=== PATIENT | female | born 1985 ===

== ENCOUNTER 2017-07-02 08:56 | Emergency (ER) | payer OTHER ==
[2017-07-02 08:57] VITALS: BMI 29.3
--- NOTE | 2017-07-02 10:16 | C.PDOC ---
History Of Present Illness 32 y/o female with PMHx of Gastritis presents to ED with complaints of diarrhea for 3 days with occasional abdominal pain. Patient denies fever, nausea, vomiting, blood in stool or any other complaints at this time. Has not tried any medication for the symptoms. Time Seen by Provider: 07/02/17 09:47 Chief Complaint (Nursing): GI Problem History Per: Patient History/Exam Limitations: no limitations Onset/Duration Of Symptoms: Days Location Of Pain/Discomfort: Diffuse Past Medical History Reviewed: Historical Data, Nursing Documentation, Vital Signs Vital Signs: Last Vital Signs Temp 98.9 F 07/02/17 11:55 Pulse 72 07/02/17 11:55 Resp 17 07/02/17 11:55 BP 129/87 07/02/17 11:55 Pulse Ox 99 07/02/17 11:55 - Medical History PMH: Anemia, Asthma, Gastritis - [facility] Procedures LINEAR REP LID LACER (02/03/15) TETANUS TOXOID ADMINIST (02/03/15) Family History: States: No Known Family Hx - Social History Hx Tobacco Use: Yes Hx Alcohol Use: Yes Hx Substance Use: No - Immunization History Hx Tetanus Toxoid Vaccination: No Hx Influenza Vaccination: No Hx Pneumococcal Vaccination: No Review Of Systems Constitutional: Negative for: Fever, Chills Gastrointestinal: Positive for: Abdominal Pain, Diarrhea. Negative for: Nausea , Vomiting, Hematochezia Skin: Negative for: Rash Physical Exam - Physical Exam Appears: Non-toxic, No Acute Distress Skin: Warm, Dry, No Rash Head: Atraumatic, Normacephalic Eye(s): bilateral: Normal Inspection, EOMI Nose: Normal Oral Mucosa: Moist Neck: Normal ROM, Supple Chest: Symmetrical Cardiovascular: Rhythm Regular Respiratory: Normal Breath Sounds, No Accessory Muscle Use, No Rales, No Rhonchi , No Wheezing Gastrointestinal/Abdominal: Soft, Tenderness (Diffuse), No Guarding, No Rebound Back: No CVA Tenderness, No Vertebral Tenderness Neurological/Psych: Oriented x3 ED Course And Treatment - Laboratory Results Result Diagrams: 07/02/17 10:27 07/02/17 10:27 O2 Sat by Pulse Oximetry: 100 (RA) Pulse Ox Interpretation: Normal Progress Note: Blood work, UA ordered, Pepcid and Toradol administered. On re- evalaution, patient is resting comfortably, in no distress, abdomen is soft, no rebound or guarding, and is tolerating PO. Patient has no signs or symptoms to suggest surgical pathology. Patient was advised to follow up without fail with physician/clinic or to return to the ER for reevaluation in 1-2 days. Disposition - Disposition Disposition: HOME/ ROUTINE Disposition Time: 11:43 Condition: STABLE Additional Instructions: Follow up with primary medical doctor in 1-3 days without fail for further evaluation. Take medications as prescribed. Return to the emergency department at any time if symptoms persist or worsen. 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 - Scribe Statement The provider has reviewed the documentation as recorded by the Jiaibaaliyah Smalls All medical record entries made by the Jiaibaaliyah were at my direction and personally dictated by me. I have reviewed the chart and agree that the record accurately reflects my personal performance of the history, physical exam, medical decision making, and the department course for this patient. I have also personally directed, reviewed, and agree with the discharge instructions and disposition.
[2017-07-02 10:42] LABS: HCG,QUALITATIVE URINE NEGATIVE (NEGATIVE)
[2017-07-02 10:44] LABS: SQUAMOUS EPITHIAL 8 /hpf (0-5); URINE BACTERIA RARE (<OCC); URINE BILIRUBIN NEGATIVE (NEGATIVE); URINE BLOOD NEGATIVE (NEGATIVE); URINE CLARITY Hazy (Clear); URINE COLOR Yellow (YELLOW); URINE GLUCOSE (UA) NORMAL (Normal); URINE LEUKOCYTE ESTERASE NEG Leu/uL (Negative); URINE NITRATE NEGATIVE (NEGATIVE); URINE PROTEIN 1+ mg/dL (NEGATIVE)
[2017-07-02 10:47] LABS: BASO % 0.5 % (0.0-2.0); EOS # 0.1 K/uL (0.0-0.7); EOS % 0.8 % (0.0-4.0); HEMOGLOBIN 13.4 g/dL (11.0-16.0); LYMPH # 1.9 K/uL (1.0-4.3); LYMPH % 20.7 % (20.0-40.0); MEAN CELL VOLUME 84.3 fL (81.0-99.0); MEAN CORPUSCULAR HEMOGLOBIN 27.9 pg (27.0-31.0); MEAN CORPUSCULAR HGB CONC 33.1 g/dL (33.0-37.0); MEAN PLATELET VOLUME 9.3 fL (7.2-11.7); MONO # 0.3 K/uL (0.0-0.8); MONO % 3.8 % (0.0-10.0); NEUT # 6.7 K/uL (1.8-7.0); NEUT % 74.2 % (50.0-75.0); RBC 4.81 Mil/uL (3.80-5.20); RED CELL DISTRIBUTION WIDTH 12.9 % (11.5-14.5)
[2017-07-02 10:55] LABS: ALB/GLOB RATIO 1.3 (1.0-2.1); ALBUMIN 4.1 g/dL (3.5-5.0); CALCIUM 8.9 mg/dl (8.6-10.4); GFR AFRICAN-AMERICAN > 60; GFR NON-AFRICAN AMERICAN > 60; LIPASE 60 U/L (23-300)
[2017-07-02 10:58] LABS: ALT/SGPT 18 U/L (9-52); AST/SGOT 28 U/L (14-36); BLOOD UREA NITROGEN 10 mg/dL (7-17)
[2017-07-02 11:57] VITALS: BP 129/87; PULSE 72; RESP 17; TEMP 98.9
[2017-07-02 14:02] VITALS: O2SAT 100
== END 2017-07-02 11:56 | disposition home or self-care (01) ==
LOC: C.ER 08:56
DX: R10.9 Unspecified abdominal pain (principal); D64.9 Anemia, unspecified
CPT/HCPCS: 80053; 81001; 83690; 84703; 85025; 96374; 96375; 99284; J1885

== ENCOUNTER 2017-07-10 09:09 | Emergency (ER) | payer OTHER ==
[2017-07-10 09:09] VITALS: BMI 29.3
[2017-07-10 09:20] VITALS: BP 118/83; PULSE 78; RESP 20; TEMP 98.5; O2SAT 98
[2017-07-10] MEDS ORDERED: Iohexol 240 (50 ml) PO STA (10:05)
[2017-07-10] MEDS ORDERED: Sodium Chloride 0.9% 1,000 ML IV STA (10:05)
--- NOTE | 2017-07-10 10:17 | C.PDOC ---
History Of Present Illness 32 y/o female c/o upper and periumbilical abdominal pain x 2 days, associated with nausea and diarrhea. Patient states she has h/o gastritis, but was never seen by a GI and never had Upper endoscopy. Patient reports she was seen here 1 week ago and was d/c on antidiarrheal medicine with mild improvement. However symptoms came back even worse 2 days ago. Patient denies fever/sick contacts/ recent traveling. Time Seen by Provider: 07/10/17 09:40 Chief Complaint (Nursing): Abdominal Pain History Per: Patient History/Exam Limitations: no limitations Onset/Duration Of Symptoms: Days Current Symptoms Are (Timing): Still Present Severity: Moderate Past Medical History Reviewed: Historical Data, Nursing Documentation, Vital Signs Vital Signs: Last Vital Signs Temp 98.5 F 07/10/17 09:19 Pulse 78 07/10/17 09:19 Resp 20 07/10/17 15:10 BP 118/83 07/10/17 09:19 Pulse Ox 98 07/10/17 14:34 - Medical History PMH: Anemia, Asthma, Gastritis Denies: Diabetes, Hepatitis, HIV, HTN, Seizures, Sexually Transmitted Disease Surgical History: No Surg Hx - [facility] Procedures LINEAR REP LID LACER (02/03/15) TETANUS TOXOID ADMINIST (02/03/15) Family History: States: No Known Family Hx - Social History Hx Tobacco Use: Yes Hx Alcohol Use: Yes Hx Substance Use: No - Immunization History Hx Tetanus Toxoid Vaccination: No Hx Influenza Vaccination: No Hx Pneumococcal Vaccination: No Review Of Systems Except As Marked, All Systems Reviewed And Found Negative. Constitutional: Negative for: Fever, Chills Gastrointestinal: Positive for: Nausea, Abdominal Pain, Diarrhea Physical Exam - Physical Exam Appears: Non-toxic, No Acute Distress Skin: Normal Color, Warm Head: Atraumatic, Normacephalic Eye(s): bilateral: Normal Inspection Nose: Normal Oral Mucosa: Moist Neck: Supple Chest: Symmetrical Cardiovascular: Rhythm Regular Respiratory: Normal Breath Sounds, No Accessory Muscle Use, No Rales, No Rhonchi , No Wheezing Gastrointestinal/Abdominal: Normal Exam, Soft, Tenderness (epigastric and periumbilical tenderness), Guarding, No Rebound Extremity: Normal ROM Neurological/Psych: Oriented x3, Normal Speech, Normal Motor, Normal Sensation ED Course And Treatment - Laboratory Results Result Diagrams: 07/10/17 10:46 02/15/18 10:46 O2 Sat by Pulse Oximetry: 98 (RA) Pulse Ox Interpretation: Normal - CT Scan/US CT of Abdomen/Pelvis Other Rad Studies (CT/US): Read By Radiologist, Radiology Report Reviewed CT/US Interpretation: Accession No. : [id number]. Patient Name / ID : LEXUS ROSE / [id number]. Exam Date : 07/10/2017 13:35:40 ( Approved ). Study Comment : Sex / Age : F / 32Y. Creator : Portia Hickey MD. Dictator : Portia Hickey MD. Associate Manager : Thread Tool Grinder Set Up Operator : Portia Hickey MD. Approver2 : Report Date : 07/10/2017 14:14:02. My Comment : . PROCEDURE: CT Abdomen and Pelvis with oral and IV contrast. HISTORY: upper and periumbilical abd pain. COMPARISON: CT abdomen and pelvis with IV contrast performed 01/01/15. TECHNIQUE: Contiguous axial images of the abdomen and pelvis. Oral and IV contrast was administered. Coronal and Sagittal reformats generated and reviewed. Contrast dose: 100 cc visi opaque 320. Radiation dose: Total exam DLP = 314.61 mGy-cm. This CT exam was performed using one or more of the following dose reduction techniques: Automated exposure control, adjustment of the mA and/or kV according to patient size, and/ or use of iterative reconstruction technique. FINDINGS: LOWER THORAX: No visible consolidation, pleural effusion, or pneumothorax. LIVER: 6 mm right hepatic lobe calcification, likely granuloma. GALLBLADDER AND BILE DUCTS: Unremarkable. PANCREAS: Unremarkable. SPLEEN: Unremarkable. ADRENALS: Unremarkable. KIDNEYS AND URETERS: The kidneys enhance symmetrically. No hydronephrosis or obstructing renal calculus. BLADDER: The urinary bladder appears unremarkable. REPRODUCTIVE: Uterus is present. Nonspecific prominence of the cervix; correlate with pelvic exam and or ultrasound if indicated. IUD. APPENDIX: The appendix appears within normal limits of caliber. No secondary signs of acute appendicitis. BOWEL: The stomach is nondistended. The bowel loops appear within normal limits of caliber without evidence of intestinal obstruction. PERITONEUM: No significant free fluid. No definite free air. LYMPH NODES: No bulky lymphadenopathy identified. VASCULATURE: No aortic aneurysm. BONES: No acute osseous abnormality is detected. OTHER FINDINGS: Tiny fat containing umbilical hernia. IMPRESSION: No acute findings identified. Nonspecific prominence of the cervix; correlate with pelvic exam and or ultrasound if indicated. IUD. Progress Note: Labs and CT -Abd/Pelv. ordered. Patient given IVF, Protonix IVP, and Zofran IVP. On re-evaluation patient feels better, tolerates poa nd is stable to be d/c home with PMD and GI follow up. Disposition - Disposition Referrals: Vivek Mckenna MD [Staff Provider] - Disposition: HOME/ ROUTINE Disposition Time: 14:30 Condition: STABLE Additional Instructions: Follow up with PMD and Artificial Breeding Ranch Supervisor within 1-2 days. Return to ED if feel worse. Prescriptions: Dicyclomine [Bentyl] 20 mg PO TID #30 tab Famotidine [Pepcid] 20 mg PO BID #20 tab Instructions: Acute Abdomen (Belly Pain) Forms: [employer] Connect (Mongolian) - Clinical Impression Clinical Impression: Abdominal pain - PA / CONFLICTS ANALYST / Resident Statement MD/DO has reviewed & agrees with the documentation as recorded. - Scribe Statement The provider has reviewed the documentation as recorded by the Ana Cavazos Provider Attestation All medical record entries made by the Ana were at my direction and personally dictated by me. I have reviewed the chart and agree that the record accurately reflects my personal performance of the history, physical exam, medical decision making, and the department course for this patient. I have also personally directed, reviewed, and agree with the discharge instructions and disposition.
[2017-07-10] MEDS ORDERED: Iohexol 240 (50 ml) ONE (10:44)
[2017-07-10] MEDS ORDERED: Sodium Chloride 0.9% 1,000 ML ONE (10:45)
[2017-07-10 11:00] LABS: BASO % 0.5 % (0.0-2.0); EOS # 0.2 K/uL (0.0-0.7); EOS % 1.8 % (0.0-4.0); HEMOGLOBIN 13.2 g/dL (11.0-16.0); LYMPH # 1.7 K/uL (1.0-4.3); LYMPH % 20.1 % (20.0-40.0); MEAN CELL VOLUME 84.2 fL (81.0-99.0); MEAN CORPUSCULAR HEMOGLOBIN 27.6 pg (27.0-31.0); MEAN CORPUSCULAR HGB CONC 32.8 g/dL (33.0-37.0); MEAN PLATELET VOLUME 9.3 fL (7.2-11.7); MONO # 0.4 K/uL (0.0-0.8); MONO % 4.4 % (0.0-10.0); NEUT # 6.3 K/uL (1.8-7.0); NEUT % 73.2 % (50.0-75.0); NRBC % 0.1 % (0.0-2.0); RBC 4.8 Mil/uL (3.80-5.20); RED CELL DISTRIBUTION WIDTH 12.8 % (11.5-14.5); WHITE BLOOD COUNT 8.6 K/uL (4.8-10.8)
[2017-07-10 11:04] LABS: HCG,QUALITATIVE URINE NEGATIVE (NEGATIVE)
[2017-07-10 11:14] LABS: ALB/GLOB RATIO 1.3 (1.0-2.1); ALBUMIN 3.8 g/dL (3.5-5.0); ALT/SGPT 18 U/L (9-52); AST/SGOT 19 U/L (14-36); BLOOD UREA NITROGEN 12 mg/dL (7-17); CALCIUM 8.7 mg/dl (8.6-10.4); GFR AFRICAN-AMERICAN > 60; GFR NON-AFRICAN AMERICAN > 60; LIPASE 104 U/L (23-300)
[2017-07-10 11:18] LABS: SQUAMOUS EPITHIAL 3 /hpf (0-5); URINE BILIRUBIN NEGATIVE (NEGATIVE); URINE BLOOD 2+ (NEGATIVE); URINE CALCIUM OXALATE CRYSTALS FEW /hpf (<OCC); URINE CLARITY Hazy (Clear); URINE COLOR Yellow (YELLOW); URINE GLUCOSE (UA) NORMAL (Normal); URINE LEUKOCYTE ESTERASE NEG Leu/uL (Negative); URINE NITRATE NEGATIVE (NEGATIVE); URINE PROTEIN NEGATIVE (NEGATIVE)
[2017-07-10] MEDS ORDERED: Iodixanol 320 MG/ML 100 ML BOTTLE IV ONE (12:45)
--- NOTE | 2017-07-10 14:15 | CT ---
PROCEDURE: CT Abdomen and Pelvis with oral and IV contrast. HISTORY: upper and periumbilical abd pain COMPARISON: CT abdomen and pelvis with IV contrast performed 01/01/15 TECHNIQUE: Contiguous axial images of the abdomen and pelvis. Oral and IV contrast was administered. Coronal and Sagittal reformats generated and reviewed. Contrast dose: 100 cc visi opaque 320 Radiation dose: Total exam DLP = 314.61 mGy-cm. This CT exam was performed using one or more of the following dose reduction techniques: Automated exposure control, adjustment of the mA and/or kV according to patient size, and/or use of iterative reconstruction technique. FINDINGS: LOWER THORAX: No visible consolidation, pleural effusion, or pneumothorax. LIVER: 6 mm right hepatic lobe calcification, likely granuloma. GALLBLADDER AND BILE DUCTS: Unremarkable. PANCREAS: Unremarkable. SPLEEN: Unremarkable. ADRENALS: Unremarkable. KIDNEYS AND URETERS: The kidneys enhance symmetrically. No hydronephrosis or obstructing renal calculus. BLADDER: The urinary bladder appears unremarkable. REPRODUCTIVE: Uterus is present. Nonspecific prominence of the cervix; correlate with pelvic exam and or ultrasound if indicated. IUD. APPENDIX: The appendix appears within normal limits of caliber. No secondary signs of acute appendicitis. BOWEL: The stomach is nondistended. The bowel loops appear within normal limits of caliber without evidence of intestinal obstruction. PERITONEUM: No significant free fluid. No definite free air. LYMPH NODES: No bulky lymphadenopathy identified. VASCULATURE: No aortic aneurysm. BONES: No acute osseous abnormality is detected. OTHER FINDINGS: Tiny fat containing umbilical hernia. IMPRESSION: No acute findings identified. Nonspecific prominence of the cervix; correlate with pelvic exam and or ultrasound if indicated. IUD.
== END 2017-07-10 15:10 | disposition home or self-care (01) ==
LOC: C.ER 09:09
DX: R10.13 Epigastric pain (principal); R10.33 Periumbilical pain
CPT/HCPCS: 74177; 80053; 81001; 83690; 84703; 85025; 96361; 96374; 96375; 99284; C9113; J2405; J7040; Q9966; Q9967

== ENCOUNTER 2017-09-29 08:51 | Emergency (ER) | payer OTHER ==
[2017-09-29 08:51] VITALS: BMI 29.3
[2017-09-29 09:09] VITALS: BP 94/64; PULSE 79; RESP 18; TEMP 98.5; O2SAT 98
--- NOTE | 2017-09-29 10:20 | C.PDOC ---
History Of Present Illness 32 y/o female presents to the ER complaining of loose stools in the morning today. Patient is also complaining of mild nasal congestion due to seasonal allergies.Patient reports that she would like to refill her Albuterol inhaler. Time Seen by Provider: 09/29/17 10:13 Chief Complaint (Nursing): Shortness Of Breath History Per: Patient History/Exam Limitations: no limitations Onset/Duration Of Symptoms: Days Current Symptoms Are (Timing): Still Present Severity: Moderate Past Medical History Reviewed: Historical Data, Nursing Documentation, Vital Signs Vital Signs: Last Vital Signs Temp 98.5 F 09/29/17 09:06 Pulse 79 09/29/17 09:06 Resp 18 09/29/17 10:34 BP 94/64 L 09/29/17 09:06 Pulse Ox 98 09/29/17 12:52 - Medical History PMH: Anemia, Asthma (NO MEDS), Gastritis Denies: Diabetes, Hepatitis, HIV, HTN, Seizures, Sexually Transmitted Disease Surgical History: No Surg Hx - [facility] Procedures LINEAR REP LID LACER (02/03/15) TETANUS TOXOID ADMINIST (02/03/15) Family History: States: No Known Family Hx - Social History Hx Tobacco Use: Yes Hx Alcohol Use: Yes Hx Substance Use: No - Immunization History Hx Tetanus Toxoid Vaccination: No Hx Influenza Vaccination: No Hx Pneumococcal Vaccination: No Review Of Systems Except As Marked, All Systems Reviewed And Found Negative. Constitutional: Negative for: Fever, Chills ENT: Positive for: Nose Congestion Gastrointestinal: Positive for: Diarrhea. Negative for: Nausea, Vomiting, Abdominal Pain Physical Exam - Physical Exam Appears: Non-toxic, No Acute Distress Skin: Normal Color, Warm, Dry Head: Atraumatic, Normacephalic Eye(s): bilateral: Normal Inspection Nose: Normal Oral Mucosa: Moist Neck: Supple Chest: Symmetrical Cardiovascular: Rhythm Regular Respiratory: No Rales, No Rhonchi, Wheezing (occasional scant wheezing) Neurological/Psych: Oriented x3, Normal Speech ED Course And Treatment O2 Sat by Pulse Oximetry: 98 (RA) Pulse Ox Interpretation: Normal Progress Note: Patient given Motrin PO. Medical Decision Making Medical Decision Making: mild R elbow discomfort, normal exam seasonal allergies ? mild asthma, wants MDI refilled. Disposition Doctor Will See Patient In The: Office Counseled Patient/Family Regarding: Studies Performed, Diagnosis - Disposition Referrals: [facility] [Outside] [facility] [Outside] Disposition: HOME/ ROUTINE Disposition Time: 10:20 Condition: GOOD Additional Instructions: diarrhea: bland diet Drink plenty of fluids asthma: Albuterol puffer refilled. always use with Aerochamber Spacer Season allergies: take OTC allergy meds as needed Prescriptions: Albuterol Sulfate [Proair Hfa] 0.09 mg IH 5XD #1 inh Spacer, Inhalation [Aerochamber] 1 dev IH DAILY #1 dev Instructions: Asthma in Adults, Seasonal Allergies in Adults Forms: [employer] (Tuvaluan) - Clinical Impression Clinical Impression: Seasonal allergies, Medication refill - Scribe Statement The provider has reviewed the documentation as recorded by the Jiaibe Tylor Cavazos Provider Attestation: All medical record entries made by the Scribe were at my direction and personally dictated by me. I have reviewed the chart and agree that the record accurately reflects my personal performance of the history, physical exam, medical decision making, and the department course for this patient. I have also personally directed, reviewed, and agree with the discharge instructions and disposition.
== END 2017-09-29 10:36 | disposition home or self-care (01) ==
LOC: C.ER 08:51
DX: Z76.0 Encounter for issue of repeat prescription (principal); J45.909 Unspecified asthma, uncomplicated; Z72.0 Tobacco use

== ENCOUNTER 2018-06-02 10:37 | Emergency (ER) | payer MEDICAID, OTHER ==
[2018-06-02 10:37] VITALS: BMI 29.3
[2018-06-02] MEDS ORDERED: Lidocaine 1% Inj (20ml) INFIL ONE (12:06)
[2018-06-02] MEDS ORDERED: Lidocaine Hydrochloride 10 ML INJ ONE (12:09)
[2018-06-02] MEDS ORDERED: Tmp-Smz 800 mg-160 mg DS Tab PO STA (12:22)
[2018-06-02] MEDS ORDERED: Tdap Vaccine 0.5 ml Vial (10-64 yrs) IM ONE ×2 (12:31→12:39)
[2018-06-02] MEDS ORDERED: Tmp-Smz 800 mg-160 mg DS Tab ONE (12:33)
--- NOTE | 2018-06-02 12:33 | C.PDOC ---
History Of Present Illness 33 y/o female presents to the ED with a 2 day history of redness and swelling to the left anterior thigh region. States she applied hot compresses and noticed some white pus oozing from the area. Tetanus is not UTD. Patient denies prior hx of abscesses. No associated fever or chills. Time Seen by Provider: 06/02/18 11:52 Chief Complaint (Nursing): Lower Extremity Problem/Injury History Per: Patient History/Exam Limitations: no limitations Onset/Duration Of Symptoms: Days Current Symptoms Are (Timing): Still Present Past Medical History Reviewed: Historical Data, Nursing Documentation, Vital Signs Vital Signs: Last Vital Signs Temp 99.1 F 06/02/18 11:02 Pulse 86 06/02/18 11:02 Resp 20 06/02/18 11:02 BP 109/74 06/02/18 11:02 Pulse Ox 100 06/02/18 11:02 - Medical History PMH: Anemia, Asthma (NO MEDS), Gastritis Denies: Diabetes, Hepatitis, HIV, HTN, Seizures, Sexually Transmitted Disease - [facility] Procedures LINEAR REP LID LACER (02/03/15) TETANUS TOXOID ADMINIST (02/03/15) Family History: States: Unknown Family Hx - Social History Hx Tobacco Use: Yes Hx Alcohol Use: Yes Hx Substance Use: No - Immunization History Hx Tetanus Toxoid Vaccination: No Hx Influenza Vaccination: No Hx Pneumococcal Vaccination: No Review Of Systems Except As Marked, All Systems Reviewed And Found Negative. Constitutional: Negative for: Fever, Chills Skin: Positive for: Other (Leg wound). Negative for: Rash Neurological: Negative for: Weakness, Numbness Physical Exam - Physical Exam Appears: Non-toxic, No Acute Distress Skin: Normal Color, Warm, Dry Head: Atraumatic, Normacephalic Eye(s): bilateral: Normal Inspection Neck: Normal ROM Chest: Symmetrical Respiratory: No Accessory Muscle Use, Other (No respiratory distress) Extremity: Normal ROM, No Calf Tenderness, Capillary Refill (< 2 sec), Swelling (8x8 cm erythematous, indurated abscess to left anterior thigh) Pulses: Left Dorsalis Pedis: Normal, Right Dorsalis Pedis: Normal Neurological/Psych: Oriented x3 ED Course And Treatment O2 Sat by Pulse Oximetry: 100 (RA) Pulse Ox Interpretation: Normal - Incision & Drainage Of Abscess Anesthesia: Lidocaine 1% (10cc) Prep Used: Sterile Water, Betadine Procedure: Incised W/Scalpel Blade#: (11), Drained Pus, Irrigated Cavity W/Salin e, Probed To Break Up Loculations, Packed W/Gauze Medical Decision Making Medical Decision Making: Impression: Abscess Plan: - Tetanus booster - 600 mg PO motrin - 10cc lido 1% ordered for procedure Patient is requesting I&D for abscess. Wound incised, and a very small amount of purulent drainage was expressed. First doses of Keflex and Bactrim given in the ED. Patient advised to return for wound check in 2 days. Disposition Counseled Patient/Family Regarding: Diagnosis, Need For Followup, Rx Given - Disposition Referrals: [facility] [Outside] Disposition: HOME/ ROUTINE Disposition Time: 12:34 Condition: STABLE Additional Instructions: follow up with your doctor within 2 days call to make an appointment take medications as prescribed return to ER if symptoms worsens or progress wound check within 2 days Prescriptions: Cephalexin [Keflex] 500 mg PO QID #40 capsule Naproxen [Naprosyn] 500 mg PO BID PRN #16 tab PRN Reason: Pain, Moderate (4-7) Sulfamethoxazole/Trimethoprim [Bactrim DS 800 mg-160 mg] 1 tab PO BID #20 tab Instructions: Skin Abscess Forms: General Discharge Instructions, [facility] (Georgian), Work Excuse - Clinical Impression Clinical Impression: Abscess - Scribe Statement The provider has reviewed the documentation as recorded by the Ana Brooke Provider Attestation: All medical record entries made by the Ana were at my direction and personally dictated by me. I have reviewed the chart and agree that the record accurately reflects my personal performance of the history, physical exam, medical decision making, and the department course for this patient. I have also personally directed, reviewed, and agree with the discharge instructions and disposition.
[2018-06-02 12:44] VITALS: BP 129/83; PULSE 66; RESP 18; TEMP 99.5
[2018-06-03 14:04] VITALS: O2SAT 100
== END 2018-06-02 12:47 | disposition home or self-care (01) ==
LOC: C.ER 10:37
DX: L02.416 Cutaneous abscess of left lower limb (principal); Z23 Encounter for immunization; Z72.0 Tobacco use

== ENCOUNTER 2018-06-04 15:00 | Emergency (ER) | payer MEDICAID ==
[2018-06-04 15:06] VITALS: BMI 26.8
[2018-06-04 15:09] VITALS: BP 135/89; PULSE 87; RESP 18; TEMP 98.4; O2SAT 99
--- NOTE | 2018-06-04 15:20 | C.PDOC ---
History Of Present Illness 33 y/o female presents to the ED for wound check of the left thigh. Patient underwent I&D to the leg 2 days ago. States she is on antibiotics at home, taking them as instructed. Patient notes the packing fell out. She reports the erythema is improving, although the area remains moderately erythematous and indurated on exam. . Denies any fevers or chills. Time Seen by Provider: 06/04/18 15:13 Chief Complaint (Nursing): Wound Check History Per: Patient History/Exam Limitations: no limitations Onset/Duration Of Symptoms: Days Ago (2) Current Symptoms Are (Timing): Still Present Quality Of Symptoms: Swollen, Draining Past Medical History Reviewed: Historical Data, Nursing Documentation, Vital Signs Vital Signs: Last Vital Signs Temp 98.4 F 06/04/18 15:06 Pulse 87 06/04/18 15:06 Resp 18 06/04/18 15:06 BP 135/89 06/04/18 15:06 Pulse Ox 99 06/04/18 15:06 - Medical History PMH: Anemia, Asthma (NO MEDS), Gastritis Denies: Diabetes, Hepatitis, HIV, HTN, Seizures, Sexually Transmitted Disease - [facility] Procedures LINEAR REP LID LACER (02/03/15) TETANUS TOXOID ADMINIST (02/03/15) Family History: States: Unknown Family Hx - Social History Hx Tobacco Use: Yes Hx Alcohol Use: Yes Hx Substance Use: No - Immunization History Hx Tetanus Toxoid Vaccination: No Hx Influenza Vaccination: No Hx Pneumococcal Vaccination: No Review Of Systems Except As Marked, All Systems Reviewed And Found Negative. Constitutional: Negative for: Fever, Chills Skin: Positive for: Lesions (incised wound, + redness) Neurological: Negative for: Weakness, Numbness Physical Exam - Physical Exam Appears: Non-toxic, No Acute Distress Skin: Warm, Dry, Other (2x3 cm erythematous induration to the left upper thigh) Head: Atraumatic, Normacephalic Eye(s): bilateral: Normal Inspection, PERRL, EOMI Neck: Normal ROM Chest: Symmetrical Respiratory: No Accessory Muscle Use, Other (No respiratory distress) Extremity: Bilateral: Normal ROM Pulses: Left Dorsalis Pedis: Normal, Right Dorsalis Pedis: Normal Neurological/Psych: Oriented x3 Gait: Steady ED Course And Treatment O2 Sat by Pulse Oximetry: 99 (RA) Pulse Ox Interpretation: Normal Medical Decision Making Medical Decision Making: Impression: Visit for wound check Wound examined with bedside US, and does not show any collection to be drained. Wound was cleaned with bacitracin, new dressing applied. I suggested to patient 2 options. as pt states, erythema is improving, states she prefers to go home with continued outpatient management., as opposed to iv antibiotics. I advised her to return immediately with any worsening symptoms, or return in 2 days for routine wound check. Disposition Counseled Patient/Family Regarding: Diagnosis, Need For Followup, Rx Given - Disposition Referrals: [facility] [Outside] [facility] [Outside] Disposition: HOME/ ROUTINE Disposition Time: 15:35 Condition: STABLE Additional Instructions: return to your doctor or pmd or er in 2 days for reassessment. Prescriptions: RX: Naproxen [Naprosyn] 500 mg PO BID PRN #14 tablet PRN Reason: Pain, Mild (1-3) Instructions: Cellulitis (Skin Infection), Adult (DC) Forms: [employer] (Cuban) - Clinical Impression Clinical Impression: Wound check, abscess, Cellulitis - Scribe Statement The provider has reviewed the documentation as recorded by the Ana Brooke Provider Attestation: All medical record entries made by the Ana were at my direction and personally dictated by me. I have reviewed the chart and agree that the record accurately reflects my personal performance of the history, physical exam, medical decision making, and the department course for this patient. I have also personally directed, reviewed, and agree with the discharge instructions and disposition.
[2018-06-04] MEDS ORDERED: Bacitracin 500 Units/gm Oint Foilpak UD ONE (15:48)
== END 2018-06-04 16:07 | disposition home or self-care (01) ==
LOC: C.ER 15:00
DX: Z48.00 Encounter for change or removal of nonsurgical wound dressing (principal); L02.416 Cutaneous abscess of left lower limb; L03.116 Cellulitis of left lower limb